=== PATIENT | male | born 1980 | race Caucasian/White ===

== ENCOUNTER 2021-02-10 21:23 | Emergency (ER) | payer BC, OTHER ==
[~2021-02-10] VITALS: Ht 165.1 cm; Wt 68.0 kg
[2021-02-10 21:24] VITALS: BP 166/110
== END 2021-02-10 22:14 | disposition home or self-care (01) ==
LOC: ER 21:23
DX: S61.211A Laceration without foreign body of left index finger without damage to nail, initial encounter (principal); W26.0XXA Contact with knife, initial encounter; Y93.89 Activity, other specified; Y92.89 Other specified places as the place of occurrence of the external cause; Y99.8 Other external cause status

== ENCOUNTER 2021-02-25 17:42 | Emergency (ER) | payer BC, OTHER ==
[~2021-02-25] VITALS: Ht 167.6 cm; Wt 68.0 kg
[2021-02-25 17:47] VITALS: BP 133/92
[2021-02-25] MEDS ORDERED: BUPROPION HCL150 M1 PO (17:49)
[2021-02-25] MEDS ORDERED: L-METHYLFOLATE15 M1 PO (17:49)
[2021-02-25] MEDS ORDERED: PRINIVIL20 MG PO (17:49)
[2021-02-25] MEDS ORDERED: NORVASC5 MG PO (17:49)
[2021-02-25] MEDS ORDERED: DESVENLAFAXINE25 MG PO (17:49)
[2021-02-25] MEDS ORDERED: ATORVASTATIN CA20 MG PO (17:49)
[2021-02-25] MEDS ORDERED: METFORMIN HCL500 M1 PO (17:49)
== END 2021-02-25 18:00 | disposition home or self-care (01) ==
LOC: ER 17:42
DX: S61.211D Laceration without foreign body of left index finger without damage to nail, subsequent encounter (principal); I10 Essential (primary) hypertension; Z79.84 Long term (current) use of oral hypoglycemic drugs; Z79.891 Long term (current) use of opiate analgesic; Z79.899 Other long term (current) drug therapy; X58.XXXD Exposure to other specified factors, subsequent encounter